=== PATIENT | male | born 2000 | race Two or more races ===

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

== ENCOUNTER 2020-09-04 02:32 | Emergency (ER) | payer SELFPAY ==
[~2020-09-04] VITALS: Ht 170.2 cm; Wt 32.7 kg
[~2020-09-04 02:32] MED LIST changes: +AMOX1TAB61 PO; -HYDR-2758 PO; +HYDR-2761 PO; +PRED50TA PO; +TRIA15OI TP
[2020-09-04] MEDS ORDERED: CEPH500C PO (02:51)
[2020-09-04] MEDS ORDERED: SULF1TAB24 PO (02:51)
--- NOTE | 2020-09-04 02:52 | ED.ADGEN ---
Past Medical History Past Medical History: No Pertinent History Additional Past Medical Histor: bradycardia Past Surgical History: No Surgical History Smoking Status: Current Every Day Smoker Alcohol Use: None Drug Use: None General Adult EDM: Chief Complaint: SKIN RASH/ABSCESS HPI: HPI: Patient is a 20 year old male coming in for pain and swelling to his right chin. Patient states he had a pimple-like lesion earlier but then was trying to pop it. Over the past couple hours has noticed an increase in the pain, edema, and redness. No systemic complaints. Denies any history of MRSA. Review of Systems: Review of Systems: All other systems within normal limits except for as noted in the HPI Allergies: Allergies: Allergies Coded Allergies Type Severity Reaction Last Updated Verified No Known Drug Allergies 07/24/13 No Physical Exam: PE: Constitutional: Well developed, well nourished, no acute distress, non-toxic appearance. [] HENT: Normocephalic, atraumatic, bilateral external ears normal, nose normal. [] Eyes: PERRLA, conjunctiva normal, no discharge. [] Neck: No rigidity, supple, no stridor. [] Cardiovascular: Regular rate and rhythm, brisk cap refill [] Lungs & Thorax: Non labored symmetric respirations, no tachypnea or respiratory distress [] Abdomen: Soft, nondistended. Skin: Warm, dry, no erythema, no rash., Edema and erythema to right chin. No fluctuance or abscess. No submandibular swelling [] Back: Unremarkable Extremities: No deformities, range of motion grossly intact, no lower extremity edema [] Neurologic: Alert and oriented X 3, no focal deficits noted. [] Psychologic: Affect normal, judgement normal, mood normal. [] Current Patient Data: Vital Signs: Vital Signs Date Time Temp Pulse Resp B/P (MAP) Pulse Ox O2 Delivery O2 Flow Rate FiO2 09/04/20 02:40 97.6 69 18 100 Room Air 97.6 EKG: EKG: [] Heart Score: C/O Chest Pain: No Risk Factors: Risk Factors: DM, Current or recent (<one month) smoker, HTN, HLP, family history of CAD, obesity. Risk Scores: Score 0 - 3: 2.5% MACE over next 6 weeks - Discharge Home Score 4 - 6: 20.3% MACE over next 6 weeks - Admit for Clinical Observation Score 7 - 10: 72.7% MACE over next 6 weeks - Early Invasive Strategies Radiology/Procedures: Radiology/Procedures: [] Course & Med Decision Making: Course & Med Decision Making Pertinent Labs and Imaging studies reviewed. (See chart for details) [] Dragon Disclaimer: Osiris Disclaimer: This electronic medical record was generated, in whole or in part, using a voice recognition dictation system. Departure Departure Impression: Primary Impression: Cellulitis, face Disposition: HOME / SELF CARE / HOMELESS Condition: STABLE Referrals: HOLLIE MUNSON MD (PCP) Patient Instructions: Cellulitis, [id number] Additional Instructions: Warm compresses 4 times a day. Take antibiotics until they are completed. Scripts Sulfamethoxazole/Trimethoprim (BACTRIM DS TABLET) 1 Each Tablet 1 TAB PO BID for infection for 7 Days, #14 TAB Prov: HENNA GONZALEZ MD 09/04/20 Cephalexin (CEPHALEXIN) 500 Mg Capsule 1 CAP PO TID for antibiotic for 7 Days, #21 CAP Prov: HENNA GONZALEZ MD 09/04/20 HENNA GONZALEZ MD Sep 04, 2020 02:51
[2020-09-04] MEDS ORDERED: cefTRIAXone IM 1 GM VIAL IM ONE (03:00)
[2020-09-04] MEDS ORDERED: SMZ/TMP 800/160MG TABLET. PO ONE (03:00)
[2020-09-04] MEDS ORDERED: 0.9 % SOD CHL for STERILE FIELD 10 ML DISP.SYRIN. ONE ×2 (03:17)
[2020-09-04] MEDS ORDERED: LIDOCAINE 1% PF 2 ML VIAL. ONE (03:19)
[2020-09-04 03:21] VITALS: BP 127/81
== END 2020-09-04 03:18 | disposition home or self-care (01) ==
LOC: ER 02:32
DX: L03.211 Cellulitis of face (principal); F17.200 Nicotine dependence, unspecified, uncomplicated
CPT/HCPCS: 96372; 99283; J0696